=== PATIENT | female | born 1990 | race African-American/Black ===

== ENCOUNTER 2019-06-23 15:29 | Emergency (ER) | payer BC, SELFPAY ==
[2019-06-23 15:31] VITALS: BP 121/75; PULSE 91; RESP 18; TEMP 37.3; O2SAT 100
--- NOTE | 2019-06-23 15:56 | ED.GENADULT ---
HPI - General Adult General Chief complaint: Skin/Abscess/Foreign Body <Isrrael Fernandez PA-C - Last Filed: 06/23/19 16:03> Stated complaint: I HAVE A LUMP UNDER MY CHIN <Isrrael Fernandez PA-C - Last Filed: 06/23/19 16:03> Time Seen by Provider: 06/23/19 15:34 <Isrrael Fernandez PA-C - Last Filed: 06/23/19 16:03> Source: patient <Isrrael Fernandez PA-C - Last Filed: 06/23/19 16:03> Mode of arrival: ambulatory <RAJANI Reynaga Last Filed: 06/23/19 16:03> Limitations: no limitations <Isrrael Fernandez PA-C - Last Filed: 06/23/19 16:03> History of Present Illness HPI narrative: Patient is a 29-year-old female who presents with swollen tender area in the submental region that was noticed today patient notes mild discomfort with hyperextending the neck patient denies any recent illness or other complaints denies similar occurrence in the past and otherwise resting comfortably in the room upon arrival in no distress <Isrrael Fernandez PA-C - Last Filed: 06/23/19 16:03> Related Data Allergies/adverse reactions: Allergies Allergy/AdvReac Type Severity Reaction Status Date / Time No Known Allergies Allergy Verified 02/24/19 16:58 <Isrrael Fernandez PA-C - Last Filed: 06/23/19 16:03> Review of Systems Review of Systems: All systems reviewed & are unremarkable except as noted in HPI and below <Isrrael Fernandez PA-C - Last Filed: 06/23/19 16:03> PMFSH Social History Social History: Social History (Updated 02/24/19 @ 18:19 by Isrrael Fernandez PA-C) Smoking status: Never smoker Gender identity (if verbalized by the patient): Female <RAJANI Reynaga Last Filed: 06/23/19 16:03> Exam Narrative: Exam Narrative: GENERAL: Well-appearing, well-nourished, and in no acute distress. HEAD: Normocephalic, atraumatic. Patient with a single mobile subcentimeter lymph node in the submental region no other abnormalities EYES: PERRLA and EOMI. ENT: Nares clear, no rhinorrhea or epistaxis. Mucous membranes moist. Oropharynx without tonsillar hypertrophy exudate or other lesions. Bilateral TMs pearly bass nonbulging NECK: Supple. No adenopathy or masses. EXTREMITIES: Normal range of motion. No edema. SKIN: Warm, dry, no rash. NEURO: No focal deficits. Alert and oriented x3. PSYCH: Normal mood and affect. <RAJANI Reynaga Last Filed: 06/23/19 16:03> Course Course Emergency Course: Patient in the room in no distress aware of case findings treatment plan diagnosis in the room in no distress felt appropriate for discharge home <Isrrael Fernandez PA-C - Last Filed: 06/23/19 16:03> Vital Signs Vital signs: Vital Signs Temperature 99.2 F 06/23/19 15:31 Pulse Rate 91 06/23/19 15:31 Respiratory Rate 18 06/23/19 15:31 Blood Pressure 121/75 06/23/19 15:31 Pulse Oximetry 100 06/23/19 15:31 Temperature 98.9 F 06/23/19 16:14 Pulse Rate 89 06/23/19 16:14 Respiratory Rate 16 06/23/19 16:14 Blood Pressure 127/84 06/23/19 16:14 Pulse Oximetry 100 06/23/19 16:14 <Isrrael Fernandez PA-C - Last Filed: 06/23/19 16:03> Vital Signs Temperature 99.2 F 06/23/19 15:31 Pulse Rate 91 06/23/19 15:31 Respiratory Rate 18 06/23/19 15:31 Blood Pressure 121/75 06/23/19 15:31 Pulse Oximetry 100 06/23/19 15:31 Temperature 98.9 F 06/23/19 16:14 Pulse Rate 89 06/23/19 16:14 Respiratory Rate 16 06/23/19 16:14 Blood Pressure 127/84 06/23/19 16:14 Pulse Oximetry 100 06/23/19 16:14 <Comfort Ledezma MD - Last Filed: 06/23/19 16:28> Medical Decision Making MDM Narrative Medical decision making narrative: Patient provided with ENT follow-up agreeing to follow-up as directed or to return if symptoms worsen or concerns <RAJANI Reynaga Last Filed: 06/23/19 16:03> Vital Signs Vital Signs: Vital Signs Temperature 99.2 F 06/23/19 15:31 Pulse Rate 91 06/23/19 15
[2019-06-23 16:14] VITALS: BP 127/84; PULSE 89; RESP 16; TEMP 37.2; O2SAT 100
== END 2019-06-23 16:15 | disposition home or self-care (01) ==
LOC: ANHED 16:05
PROVIDERS: Emergency Provider Emergency Medicine
DX: R59.1 Generalized enlarged lymph nodes (principal)
CPT/HCPCS: 99283

== ENCOUNTER 2019-12-25 12:15 | Emergency (ER) | payer BC, SELFPAY ==
--- NOTE | ~2019-12-25 | CT_ITS ---
EXAMINATION: CT abdomen pelvis wo con DATE: 12/25/2019 15:58 INDICATION: Low abdominal pain. TECHNIQUE: Computed tomography (CT) of the abdomen and pelvis was performed without intravenous contr ast. Automated exposure control and iterative reconstruction technique were employed. The dose-length product was 170.82 mGy-cm. COMPARISON: None. FINDINGS: The visualized portions of the lung bases are clear without pneumonia or pleural effusion. The heart size is normal. No pericardial effusion. The liver, gallbladder, spleen, pancreas, adrenal glands, and kidneys are normal. There is no urolithiasis. There are no dilated loops of bowel. The ap pendix is normal. There are no pathologically enlarged lymph nodes. There is no free intraperitoneal fluid. The bones are unremarkable. IMPRESSION: 1. No etiology for the patient's symptoms. Reviewed, dictated and finalized at location [facility]
[2019-12-25 12:31] VITALS: BP 119/78; PULSE 99; RESP 16; TEMP 37.1; O2SAT 100
[2019-12-25 13:20] LABS: Add Urine Microscopic? YES; Appearance Urine Cloudy (Clear); Bilirubin Urine Negative (Negative); Blood Urine Negative (Negative); Color Urine Yellow (Yellow); Glucose Urine UA Negative (Negative); Ketones Urine Negative (Negative); Leukocyte Esterase Ur Trace LEU/UL (Negative); Mucus Urine Rare /lpf; Nitrate Urine Negative (Negative); Protein Urine Negative (Negative); RBC Urine 0-2 /hpf (0-2); Squamous Epithelial Cell Urine Many /hpf (Few); Transitional Epi Cells Urine Rare /hpf (None Seen); WBC Urine 0-3 /hpf
[2019-12-25 15:12] LABS: Basophils Absolute Auto 0.1 K/mm3 (0.0-0.1); Basophils Percent Auto 0.9 % (0.2-1.2); Eosinophils Percent Auto 0.6 % (0-4.4); Hematocrit 26.7 % (37.0-47.0); Hemoglobin 8.4 g/dL (12.0-15.0); Immature Granulocyte Absolute 0.01 K/mm3 (0.00-0.031); Immature Granulocyte Percent A 0.2 % (0-0.5); Lymphocytes Percent Auto 55.7 % (18.3-44.2); Mean Corpuscular HGB Conc 31.5 g/dl (32-36); Mean Corpuscular Hemoglobin 24.4 pg (26-34); Mean Corpuscular Volume 77.6 fl (80-100); Mean Platelet Volume 10.3 fl (7.4-10.4); Monocytes Absolute Auto 0.5 K/mm3 (0.1-0.6); Neutrophils Absolute Auto 1.8 K/mm3 (1.3-6.7); Neutrophils Percent Auto 32.6 % (45.5-73.1); Platelet Count Result 346 k/mm3 (150-375); Red Blood Count 3.44 M/mm3 (4.2-5.4); Red Cell Distribution Width 16.2 % (11.5-14.5); White Blood Count 5.4 K/mm3 (4.5-10.0)
[2019-12-25 15:23] LABS: Anion Gap 11 mmol/L (8-16); Blood Urea Nitrogen 8 mg/dL (7-17); Calcium 9.2 mg/dL (8.4-10.2); Carbon Dioxide 24 mmol/L (22-30); Chloride 105 mmol/L (98-107); Estimated CRCL calculation 93 ml/min; Estimated Glomerular Filt Rate > 60; Glucose 90 mg/dL (65-105); Potassium 3.7 mmol/L (3.4-5.0); Sodium 140 mmol/L (137-145)
--- NOTE | 2019-12-25 16:12 | ED.ABDPAIN ---
HPI - Abdominal Pain General Chief Complaint: Urogenital-Female Stated Complaint: UTI symptoms Time Seen by Provider: 12/25/19 13:18 Source: patient Mode of arrival: ambulatory Limitations: no limitations History of Present Illness HPI narrative: This is a 29 year old female that presents to the ER for dysuria x 2 days. Associated with urinary frequency. Also reports some mid abdominal discomfort. Denies fever, nausea, vomiting, or flank pain. Related Data Allergies Allergy/AdvReac Type Severity Reaction Status Date / Time No Known Allergies Allergy Verified 02/24/19 16:58 Review of Systems Review of Systems: Narrative: CONSTITUTIONAL: Denies fever GASTROINTESTINAL: Reports abdominal pain. Denies nausea, vomiting, or diarrhea. GENITOURINARY: Reports dysuria. Denies hematuria. SKIN: Denies rash All systems reviewed & are unremarkable except as noted in HPI and below PMFSH Past Medical History Medical History (Updated 12/25/19 @ 16:14 by Naima Morales PA-C) History of seasonal allergies Social History Social History (Updated 02/24/19 @ 18:19 by Isrrael Fernandez PA-C) Smoking status: Never smoker Gender identity (if verbalized by the patient): Female Exam Narrative: Exam Narrative: GENERAL: Well-appearing, well-nourished, and in no acute distress. HEAD: Normocephalic, atraumatic. EYES: EOMI. CHEST: Clear to auscultation. No respiratory distress. No wheezes rales or rhonchi HEART: Regular rate and rhythm. No murmur heard. Normal peripheral pulses. ABDOMEN: Soft, nontender, nondistended, normal active bowel sounds. EXTREMITIES: Normal range of motion. No edema. SKIN: Warm, dry, no rash. NEURO: No focal deficits. Alert and oriented x3. PSYCH: Normal mood and affect PELVIC: Normal appearing cervix. Small amount of white discharge in the vaginal vault. No CMT Course Vital Signs Vital signs: Vital Signs Temperature 98.8 F 12/25/19 12:31 Pulse Rate 99 12/25/19 12:31 Respiratory Rate 16 12/25/19 12:31 Blood Pressure 119/78 12/25/19 12:31 Pulse Oximetry 100 12/25/19 12:31 Temperature 98.8 F 12/25/19 12:31 Pulse Rate 99 12/25/19 12:31 Respiratory Rate 16 12/25/19 12:31 Blood Pressure 119/78 12/25/19 12:31 Pulse Oximetry 100 12/25/19 12:31 MDM - Abdominal Pain Lab Data Attestation: I reviewed the patient's lab results. Result diagrams: 12/25/19 15:04 12/25/19 15:04 Labs: Lab Results 12/25/19 12/25/19 12/25/19 Range/Units 13:06 14:45 14:47 WBC (4.5-10.0) K/mm3 RBC (4.2-5.4) M/mm3 Hgb (12.0-15.0) g/dL Hct (37.0-47.0) % MCV (80-100) fl MCH (26-34) pg MCHC (32-36) g/dl RDW (11.5-14.5) % Plt Count (150-375) k/mm3 MPV (7.4-10.4) fl Immature Gran % (Auto) (0-0.5) % Neut % (Auto) (45.5-73.1) % Lymph % (Auto) (18.3-44.2) % [place] % (Auto) (2.6-8.5) % Eos % (Auto) (0-4.4) % Baso % (Auto) (0.2-1.2) % Lymph # (Auto) (0.9-3.2) K/mm3 [place] # (Auto) (0.1-0.6) K/mm3 Eos # (Auto) (0-0.3) K/mm3 Baso # (Auto) (0.0-0.1) K/mm3 Abs Immat Gran (auto) (0.00-0.031) K/mm3 Absolute Neuts (auto) (1.3-6.7) K/mm3 Absolute Nucleated RBC (0.0-0.012) K/mm3 Nucleated RBC % (0.0-0.2) % Sodium (137-145) mmol/L Potassium (3.4-5.0) mmol/L Chloride (98-107) mmol/L Carbon Dioxide (22-30) mmol/L Anion Gap (8-16) mmol/L BUN (7-17) mg/dL Creatinine (0.7-1.0) mg/dL Estim Creat Clear Calc ml/min Estimated GFR (59 - ) Glucose (65-105) mg/dL Calcium (8.4-10.2) mg/dL Urine Color Yellow (Yellow) Urine Appearance Cloudy H (Clear) Urine pH 8.0 (5.0-9.0) Ur Specific [place] 1.010 (1.001-1.035) Urine Protein Negative (Negative) mg/dL Urine Glucose (UA) Negative (Negative) mg/dL Urine Ketones Negative (Negative) mg/dL Ur Blood (Man) Negative (Negative) Urine
--- NOTE | 2019-12-25 16:34 | ED.ABDPAIN ---
HPI - Abdominal Pain General Chief Complaint: Urogenital-Female Stated Complaint: UTI symptoms Time Seen by Provider: 12/25/19 13:18 Source: patient Mode of arrival: ambulatory Limitations: no limitations History of Present Illness HPI narrative: This is a 29 year old female that presents to the ER for dysuria x 2 days. Also reports frequency and mid abdominal discomfort. Denies fever, nausea, vomiting, or hematuria. Related Data Allergies Allergy/AdvReac Type Severity Reaction Status Date / Time No Known Allergies Allergy Verified 02/24/19 16:58 Review of Systems Review of Systems: Narrative: CONSTITUTIONAL: Denies fever GASTROINTESTINAL: Reports abdominal pain. Denies nausea, vomiting, or diarrhea. GENITOURINARY: Reports dysuria. Denies hematuria. SKIN: Denies rash All systems reviewed & are unremarkable except as noted in HPI and below PMFSH Past Medical History Medical History (Updated 12/25/19 @ 16:41 by Naima Morales PA-C) History of seasonal allergies Social History Social History (Updated 02/24/19 @ 18:19 by Isrrael Fernandez PA-C) Smoking status: Never smoker Gender identity (if verbalized by the patient): Female Exam Narrative: Exam Narrative: GENERAL: Well-appearing, well-nourished, and in no acute distress. HEAD: Normocephalic, atraumatic. EYES: EOMI. CHEST: Clear to auscultation. No respiratory distress. No wheezes rales or rhonchi HEART: Regular rate and rhythm. No murmur heard. Normal peripheral pulses. ABDOMEN: Soft, nontender, nondistended, normal active bowel sounds. EXTREMITIES: Normal range of motion. No edema. SKIN: Warm, dry, no rash. NEURO: No focal deficits. Alert and oriented x3. PSYCH: Normal mood and affect PELVIC: Normal appearing cervix. Small amount of white discharge in the vaginal vault. No CMT Course Vital Signs Vital signs: Vital Signs Temperature 98.8 F 12/25/19 12:31 Pulse Rate 99 12/25/19 12:31 Respiratory Rate 16 12/25/19 12:31 Blood Pressure 119/78 12/25/19 12:31 Pulse Oximetry 100 12/25/19 12:31 Temperature 98.8 F 12/25/19 12:31 Pulse Rate 99 12/25/19 12:31 Respiratory Rate 16 12/25/19 12:31 Blood Pressure 119/78 12/25/19 12:31 Pulse Oximetry 100 12/25/19 12:31 MDM - Abdominal Pain MDM Narrative Medical decision making narrative: Patient presents to the emergency department for dysuria and abdominal discomfort. She is afebrile and nontoxic-appearing. CBC is without leukocytosis. Does show microcytic anemia with hemoglobin of 8.4. Metabolic panel without concerning findings. UA is without signs of infection. Trichomonas was negative. Genital culture, chlamydia and gonorrhea were sent. Patient does not want to be presumptively treated and would like to follow-up for results. CT scan of the abdomen and pelvis is without acute findings. Patient was updated on case findings. Reports she has known history of anemia. She is to follow-up with her primary care doctor and piercing specialist. She was given warnings to return to the ER Lab Data Attestation: I reviewed the patient's lab results. Result diagrams: 12/25/19 15:04 12/25/19 15:04 Labs: Lab Results 12/25/19 12/25/19 12/25/19 Range/Units 13:06 14:45 14:47 WBC (4.5-10.0) K/mm3 RBC (4.2-5.4) M/mm3 Hgb (12.0-15.0) g/dL Hct (37.0-47.0) % MCV (80-100) fl MCH (26-34) pg MCHC (32-36) g/dl RDW (11.5-14.5) % Plt Count (150-375) k/mm3 MPV (7.4-10.4) fl Immature Gran % (Auto) (0-0.5) % Neut % (Auto) (45.5-73.1) % Lymph % (Auto) (18.3-44.2) % [place] % (Auto) (2.6-8.5) % Eos % (Auto) (0-4.4) % Baso % (Auto) (0.2-1.2) % Lymph # (Auto) (0.9-3.2) K/mm3 [place] # (Auto) (0.1-0.6) K/mm3 Eos # (Auto) (0-0.3) K/mm3 Baso # (Auto) (0.0-0.1) K/mm3 Abs Immat Gran (auto) (0.00-0.031) K/mm3 Absolute Neuts (auto) (1.3-6.7) K/mm3 Absolute Nucleate
[2019-12-25 17:05] VITALS: BP 116/74; PULSE 60; RESP 12; O2SAT 99
== END 2019-12-25 18:02 | disposition home or self-care (01) ==
PROVIDERS: Physician Assistant; Emergency Provider Emergency Medicine
DX: D64.9 Anemia, unspecified (principal); R30.0 Dysuria
CPT/HCPCS: 36415; 74176; 80048; 81001; 81025; 85025; 87070; 87086; 87088; 87491; 87591; 87808; 99284

== ENCOUNTER 2020-02-25 10:55 | Emergency (ER) | payer BC, SELFPAY ==
[2020-02-25 11:05] VITALS: BP 119/75; PULSE 77; RESP 14; TEMP 36.6; O2SAT 100
--- NOTE | 2020-02-25 11:17 | ED.NECK ---
HPI - Neck Pain/Injury General Chief Complaint: Neck Pain/Injury Stated Complaint: neck pain Time Seen by Provider: 02/25/20 11:11 Source: patient Mode of arrival: ambulatory Limitations: no limitations History of Present Illness HPI Narrative: Patient is a 30-year-old female complaining of right-sided neck pain, 6 out of 10, dull aching, nonradiating, worse with movement and palpation started approximately 1 week ago, woke up with it . Patient states she might of slept the wrong way but denies any injury. Patient denies any headache, dizziness, speech or visual disturbance, weakness, numbness, fever or chills. Related Data Allergies Allergy/AdvReac Type Severity Reaction Status Date / Time No Known Allergies Allergy Verified 02/24/19 16:58 Review of Systems Review of Systems: All systems reviewed & are unremarkable except as noted in HPI and below Constitutional: Constitutional: Denies body ache(s), Denies chills, Denies excessive sweating, Denies fatigue, Denies fever(s), Denies headache(s), Denies lethargy, Denies malaise, Denies weakness and Denies weight loss Eyes: Eyes: Denies blurry vision, Denies change in vision and Denies loss of vision ENT: Denies dizziness, Denies ear discharge, Denies headache(s), Denies lip swelling, Denies epistaxis, Denies nasal congestion, Denies throat swelling and Denies tongue swelling Cardiovascular: Cardiovascular: Denies chest pain, Denies chest pain at rest, Denies chest pain with activity, Denies diaphoresis, Denies rapid heart rate, Denies edema, Denies irregular heart rhythm, Denies lightheadedness, Denies palpitations, Denies dyspnea and Denies dyspnea on exertion Respiratory: Respiratory: Denies chest congestion, Denies cough, Denies hemoptysis, Denies dyspnea and Denies dyspnea on exertion Gastrointestinal: Gastrointestinal: Denies abdominal pain, Denies melena, Denies hematochezia, Denies diarrhea, Denies nausea, Denies vomiting and Denies hematemesis Musculoskeletal: Musculoskeletal: Denies abnormal gait, Denies deformity, Denies joint swelling, Denies limited range of motion, Denies neck pain and Denies numbness Neurologic: Denies Abnormal speech present, Denies abnormal gait, Denies confusion, Denies dizziness, Denies headache(s), Denies focal weakness, Denies loss of vision, Denies numbness, Denies Other visual disturbances, Denies Sensory deficit (Neuro) and Denies weakness Psychiatric: Psychiatric: Denies confusion, Denies depression, Denies auditory hallucinations, Denies homicidal ideation and Denies suicidal ideation Endocrine: Endocrine: Denies cold intolerance, Denies excessive sweating, Denies fatigue, Denies heat intolerance and Denies palpitations Hematologic/Lymphatic: Hematologic/Lymphatic: Denies easy bleeding and Denies easy bruising Allergic/Immunologic: Allergic/Immunologic: Denies lip swelling, Denies throat swelling and Denies tongue swelling PMFSH Past Medical History Medical History History of seasonal allergies Social History Social History Smoking status: Never smoker Gender identity (if verbalized by the patient): Female Exam Const: General: cooperative, healthy appearing, comfortable, no acute distress, well developed, alert and awake; No confusion Orientation/consciousness: oriented to person, oriented to place, oriented to time, patient oriented x3 and No confusion Limitations: no limitations HENMT: Head: normal to inspection, normocephalic and atraumatic Ears: hearing grossly normal bilaterally, TM normal on the right and TM normal on the left General nose exam: Normal external nose present, Normal nares present and No nasal discharge present Face and sinus: normal facial exam Mouth: Yes Normal oral and palatal mucosa present, Yes lip normal, Yes tongue normal and Yes oropharynx normal Throat: posterior oropharynx normal, tonsils
[2020-02-25] MEDS: KETOROLAC 30 MG/ML VIAL (*BKC) IM (12:08)
[2020-02-25] MEDS: CYCLOBENZAPRINE HCL 10 MG TABLET PO (12:08)
[2020-02-25 12:44] VITALS: BP 116/73; PULSE 70; RESP 15; O2SAT 99
== END 2020-02-25 13:22 | disposition home or self-care (01) ==
PROVIDERS: Emergency Provider Emergency Medicine
DX: S16.1XXA Strain of muscle, fascia and tendon at neck level, initial encounter (principal); X58.XXXA Exposure to other specified factors, initial encounter
CPT/HCPCS: 81025; 96372; 99283; A9270; J1885

== ENCOUNTER 2021-05-08 09:23 | Outpatient (CLI) | payer OTHER, MEDICAID, SELFPAY ==
[2021-05-08 09:54] LABS: Hematocrit 30.6 % (37.0-47.0); Hemoglobin 9.7 g/dL (12.0-15.0)
== END 2021-05-08 09:24 | disposition home or self-care (01) ==
LOC: ANHLAB 09:26
PROVIDERS: Visit Provider Student in an Organized Health Care Education/Training Program
DX: N84.0 Polyp of corpus uteri (principal); Z01.818 Encounter for other preprocedural examination
CPT/HCPCS: 36415; 85014; 85018

== ENCOUNTER → 2021-05-11 02:47 | Outpatient (CLI) | payer OTHER, MEDICAID, SELFPAY ==
[2021-05-11 11:36] LABS: SARS-CoV-2 RNA PCR Negative
== END ==
PROVIDERS: Student in an Organized Health Care Education/Training Program; Visit Provider Obstetrics & Gynecology
DX: Z01.812 Encounter for preprocedural laboratory examination (principal); Z20.822 Contact with and (suspected) exposure to COVID-19
CPT/HCPCS: C9803; U0003; U0005

== ENCOUNTER 2021-05-14 01:06 | Day surgery (SDC) | payer OTHER, MEDICAID, SELFPAY ==
[2021-05-04 15:01] VITALS: BMI 23.4
--- NOTE | 2021-05-04 15:06 | PC.NURSE ---
Report to the Outpatient Waiting Room, entrance under the green pavilion located off [facility], at time _1230 on date __05/14/21__. OR Time: ____1430____. - You and your visitor will be asked a series of questions to screen for COVID 19 for your protection. - A mask is required within the hospital. Preoperative COVID Testing Requirements: No COVID Test needed if: (proof is required; if not received patient will have Rapid Test prior to entry) - Patient has received COVID Vaccine at least 14 days prior to procedure date or - Patient has positive COVID test result within last 90 days of surgery date. COVID Test needed if above criteria is not met If not COVID vaccinated a COVID test must be conducted within 72 hours of surgery and patient is asked to isolate self from time of testing until procedure. You will go to the [email or web address] for your COVID testing. The [facility] site is located at the corner of [address] from [facility]. You will only be called if COVID results are positive and your surgeon may reschedule your elective surgery date. Patients may have clear liquids (water, carbonated beverages, clear teas, apple juice) until 3 hours prior to surgery with a maximum of 20 ounces. - No food from midnight until time of surgery - Infants may have breast milk until 4 hours before surgery, infant formula 6 hours prior to surgery. - Children will be allowed to drink immediately following surgery. If applicable, please bring a bottle or sippy cup to assist with drinking. Juice, water, soda, and popsicles are readily available. For infants on formula, please bring formula the day of surgery. Pacifiers are allowed. Take the following medications with a SIP of water the morning of surgery: NONE Medications to discontinue per physician NONE Date to take last dose Please no make-up, nail bangladeshi, hairspray, perfume, deodorant, or body powder the day of surgery. No jewelry (including any body piercings) or valuables the day of surgery, leave them at home. Please take a shower or bath the night before, or the morning of, surgery with an antibacterial soap. Wear comfortable, loose fitting clothing. Children are encouraged to wear pajamas. - Jewelry must be removed prior to entering the operating room. Rings and piercings that are not removed may be cut off. - The hospital will not accept responsibility for valuables. - Please leave all valuables, including medications, at home the day of surgery. If you are going home after surgery, a licensed dray driver must drive you home. - NO public transportation without another adult. - We recommend that an adult stay with you for 24 hours following discharge. - We also recommend that you do not drive, make important decision, drink alcoholic beverages, or take any drugs that were not prescribed by your health care provider for at least 24 hours after your discharge time. For Pediatric surgeries, we recommend two adults accompany the child home (only one inside the building at this time). One visitor will be allowed to accompany the patient into the hospital. Patients visitor will be instructed to remain with patient at all times or leave the building. We will allow the visitor to come back to the postoperative area when patient is ready. Follow any additional instructions given to you from your surgeon. Telephone instructions given to PATIENT and asked if any additional questions and then verbalized understanding. Patient advised to call surgeon office or pre surgery nurse liaison [phone] if any additional questions.
--- NOTE | 2021-05-13 07:51 | PM.IMHP ---
H&P: HPI History of Present Illness Date/Time: 05/13/21 07:51 Chief Complaint: Abnormal uterine bleeding Narrative: 31 yo female who presents for hysteroscopy and D&C for AUB. Pt [facility] at [facility] complaining of heavy vaginal bleeding. Pt reported a family history of uterine fibroids. Her pelvic US did not show any fibroids but showed a thickened EMC with possible increased vascularity. Pt also reports she has been trying to conceive without success. [facility] Past Medical History Medical History History of seasonal allergies Social History Social History Smoking status: Never smoker Alcohol intake: current Drinks per week: 1 Substance use: never Gender identity (if verbalized by the patient): Female Meds Home Medications and Allergies Home Medications Medication Instructions Recorded Confirmed Type No Home Medications 05/04/21 05/04/21 History Allergies Allergy/AdvReac Type Severity Reaction Status Date / Time No Known Allergies Allergy Verified 05/04/21 14:58 Assessment and Plan Assessment and plan (1) Abnormal uterine bleeding (AUB): Code(s): N93.9 - Abnormal uterine and vaginal bleeding, unspecified Status: Acute Assessment and Plan: pt complains of heavy vaginal bleeding during menses pt had pelvic US that showed thickened EMC with increased vascularity, possible polyp pt has been trying to conceive for the past 5 months will plan for hysteroscopy and D&C
--- NOTE | 2021-05-13 15:23 | P.PNAN_ITS ---
Anes - Initial Pre Proc Eval Procedure: Operation Date: 05/14/21 14:30 Proposed Procedures p Hysteroscopy, Dilation and Curettage, Endometrial Polypectomy - Rashid Fuentes MD Date/Time: 05/13/21 15:23 Surgeon: Rashid Fuentes MD Pre Op Diagnosis: Irrg Bleeding, Uterine Polyp Patient Data Age: 31 Gender: F Height: 1.6 m Weight: 60 kg Allergies Allergy/AdvReac Type Severity Reaction Status Date / Time No Known Allergies Allergy Verified 05/14/21 12:46 Home Medications Medication Instructions Recorded Confirmed Type No Home Medications 05/04/21 05/04/21 History Patient hx anesthesia problems: none Family hx anesthesia problems: none Results Review: All pre-operative results and documents have been reviewed as part of the pre-operative evaluation. [facility] Past Medical History Medical History (Updated 05/13/21 @ 15:23 by Power Huerta MD) Abnormal uterine bleeding (AUB) History of seasonal allergies Social History Social History Smoking status: Never smoker Alcohol intake: current Drinks per week: 1 Substance use: never Living arrangements: with family Gender identity (if verbalized by the patient): Female Anes - Eval Final PreProcedure Day of Procedure 05/13/21 15:23 Patient weight: normal Heart: regular rate and rhythm Lungs: clear to auscultation and normal air movement Airway: Mallampati scale class II Neurological: alert and oriented Last oral intake: >/= 8 hours ASA classification: I Emergent: no Anesthetic plan: proceed Anesthesia type and monitoring: general GIVS and LMA Results Review: All pre-operative results and documents have been reviewed as part of the pre-operative evaluation. Informed Consent: The patient's anesthetic plan and its attendant risks and benefits were discussed with the patient/family/POA. Questions were solicited and answers provided to the satisfaction of the patient/family/POA.
--- NOTE | 2021-05-14 09:02 | WPDHPUPDATE1 ---
History and Physical Update Update Date/Time: 05/14/21 09:02 History and Physical has been reviewed, including an updated exam of the patient. There are NO changes in the patient's condition. Risks, benefits, and alternatives have been discussed and questions answered. Patient agrees to proceed with procedure.
[2021-05-14 12:41] VITALS: BP 106/67; PULSE 73; RESP 16; TEMP 36.7; O2SAT 100; BMI 23.5
[2021-05-14] MEDS: ACETAMINOPHEN 500 MG TABLET 1000 MG PO (12:49)
[2021-05-14] MEDS: LACTATED RINGERS 1,000 ML 30 ML IV CONT (12:57)
--- NOTE | 2021-05-14 14:56 | SUR.OPER ---
[facility] HYSTEROSCOPE SYSTEM
--- NOTE | 2021-05-14 15:09 | W.PM.PROC2 ---
Procedure Note - Detailed Date of Procedure 05/14/21 Pre-op Diagnosis Irrg Bleeding, Uterine Polyp Post-op Diagnosis Same Procedure Performed paracervical block hysteroscopy dilation & curettage polypectomy Surgeon Rashid Fuentes MD Anesthesia General Indications abnormal uterine bleeding Findings normal appearing intrauterine cavity. Normal tubal ostia bilaterally Description of Procedure Joaquín Rosado presents for hysteroscopy, D&C, polypectomy. She was counseled as to the indications, risks, benefits, and alternatives to surgery, with the risks including bleeding, infection, damage to surrounding organs, VTE, and complications of anesthesia. Her verbal and written consent was obtained. PROCEDURE: The patient was taken to the OR and general anesthesia induced. She was prepped and draped in Russ stirrups with support of the back and bilateral lower extremities. I/O catheterization performed of the bladder. The above findings were noted. Infiltration with 1% lidocaine at the 3 and 9 o'clock cervical positions was performed. A single tooth tenaculum was placed on the anterior lip of the cervix. The cervix was dilated with sequential Susannah dilators. Hysteroscopy, using a normal saline medium, was performed and showed the above findings. The endometrial lining was visualized and found to have focal areas of thickening suggestive of endometrial polyp. The AvTheInfoPro operative hysteroscope device was then used to remove the polyp and sample the endometrial lining, restoring a normal appearing endometrial cavity. The tissue was sent to pathology. Sharp uterine curettage was then performed and tissue placed on Telfa. The tenaculum was removed and hemostasis was observed. The patient tolerated the procedure well. Sponge, lap, and needle counts were correct. The patient was taken to the recovery room in stable condition. Estimated Blood Loss 25 Urine Output 100 Drains No Packing No Pathology Yes (endometrial curettings ) Complications No immediate complications Condition Stable Disposition PACU
[2021-05-14 15:12] VITALS: BP 98/65; PULSE 77; RESP 14; O2SAT 98
[2021-05-14 15:30] VITALS: BP 103/72; PULSE 58; RESP 16; O2SAT 97
[2021-05-14 16:00] VITALS: BP 102/73; PULSE 69; RESP 16; O2SAT 99
== END 2021-05-14 16:21 | disposition home or self-care (01) ==
PROVIDERS: Visit Provider Student in an Organized Health Care Education/Training Program
PROC: 0U5B8ZZ Destruction of Endometrium, Via Natural or Artificial Opening Endoscopic (ICD-10-PCS; CPT 58563; principal; 2021-05-14 14:30)
DX: C54.1 Malignant neoplasm of endometrium (principal)
CPT/HCPCS: 58558; 36415; 85014; 85018; 88305; A9270; C9803; J2250; J2704; J3010; J7120; U0003; U0005

== ENCOUNTER 2021-10-03 09:18 | Emergency (ER) | payer OTHER, MEDICAID, SELFPAY ==
--- NOTE | ~2021-10-03 | CT_ITS ---
EXAMINATION: CT abdomen pelvis w con DATE: 10/03/2021 11:26 INDICATION: Abdominal pain. TECHNIQUE: Computed tomography (CT) of the abdomen and pelvis was performed with 100 mL Omnipaque 350 intravenous contrast. Automated exposure control and iterative reconstruction technique were employe d. The dose-length product was 225.33 mGy-cm. COMPARISON: CT abdomen and pelvis 12/25/2019 FINDINGS: The visualized portions of the lung bases demonstrate mild atelectasis. No pleural effusion . The heart size is normal. No pericardial effusion. There are bilateral breast implants. The liver, gallbladder, spleen, pancreas, adrenal glands, and kidneys are normal. There are no dilated loops of bowel. The appendix is normal. There are punctate foci of free intraperitoneal gas adjacent to the li rae, consistent with recent surgery. There are no pathologically enlarged lymph nodes. There are area s of fat stranding in anterior abdominal wall at recent surgical sites. There is physiologic fluid in the pelvis. The bones are unremarkable. IMPRESSION: 1. No specific etiology for the patient's symptoms. Reviewed, dictated and finalized at location A.
--- NOTE | ~2021-10-03 | US_ITS ---
EXAMINATION: US transvaginal DATE: 10/03/2021 14:41 INDICATION: pelvic pain s/p intercourse TECHNIQUE: Multiple transvaginal sonographic images of the pelvis were obtained. COMPARISON: None. FINDINGS: Uterus: Absent Right Ovary: 4.1 x 2.6 x 2.5 cm. Vascular flow is present. Left Ovary: 3.6 x 2.7 x 1.9 cm. Vascular flow is present. Tender to transducer pressure. There is no free fluid in the pelvis. IMPRESSION: Left adnexal tenderness to transducer pressure. Surgically absent uterus. No other sonographic abnorm ality detected. Reviewed, dictated and finalized at location K. IMPRESSION: Left adnexal tenderness to transducer pressure. Surgically absent uterus. No ot her sonographic abnormality detected.
[2021-10-03 09:25] VITALS: BP 115/74; PULSE 115; RESP 20; TEMP 36.7; O2SAT 98
[2021-10-03] MEDS: LACTATED RINGERS 1,000 ML 999 ML IV CONT (10:07)
[2021-10-03] MEDS: MORPHINE SULFATE (*CRX) 4 MG/ML INJ IV PUSH (10:08)
[2021-10-03 10:09] LABS: Basophils Percent Auto 0.3 % (0.2-1.2); Eosinophils Percent Auto 0.2 % (0-4.4); Hematocrit 28.4 % (37.0-47.0); Hemoglobin 9.1 g/dL (12.0-15.0); Immature Granulocyte Absolute 0.05 K/mm3 (0.00-0.031); Immature Granulocyte Percent A 0.5 % (0-0.5); Lymphocytes Absolute Auto 1.74 K/mm3 (0.9-3.2); Lymphocytes Percent Auto 16.6 % (18.3-44.2); Mean Corpuscular Hemoglobin 27.1 pg (26-34); Mean Corpuscular Volume 84.5 fl (80-100); Mean Platelet Volume 9.8 fl (7.4-10.4); Monocytes Absolute Auto 0.7 K/mm3 (0.1-0.6); Neutrophils Absolute Auto 7.9 K/mm3 (1.3-6.7); Neutrophils Percent Auto 75.4 % (45.5-73.1); Platelet Count Result 303 k/mm3 (150-375); Red Blood Count 3.36 M/mm3 (4.2-5.4); Red Cell Distribution Width 16.9 % (11.5-14.5); White Blood Count 10.5 K/mm3 (4.5-10.0)
[2021-10-03 10:13] LABS: Appearance Urine Clear (Clear); Bilirubin Urine 1+ (Negative); Color Urine Yellow (Yellow); Glucose Urine UA Negative (Negative); Ketones Urine Trace mg/dL (Negative); Leukocyte Esterase Ur 2+ LEU/UL (Negative); Nitrate Urine Negative (Negative); Protein Urine 1+ mg/dL (Negative)
[2021-10-03 10:17] LABS: Mucus Urine Few /lpf; Squamous Epithelial Cell Urine Few /hpf (Few); WBC Urine 16-20 /hpf
[2021-10-03 10:20] LABS: Alanine Aminotransferase 15 U/L (6-35); Albumin Level 4.3 g/dL (3.5-5.1); Alkaline Phosphatase 48 U/L (38-126); Anion Gap 7 mmol/L (8-16); Aspartate Amino Transferase 46 U/L (14-36); Bilirubin,Total 0.6 mg/dL (0.2-1.3); Blood Urea Nitrogen 7 mg/dL (7-17); Calcium 8.5 mg/dL (8.4-10.2); Carbon Dioxide 27 mmol/L (22-30); Chloride 103 mmol/L (98-107); Estimated CRCL calculation 73 ml/min; Estimated Glomerular Filt Rate > 60; Glucose 96 mg/dL (65-110); INR 1.1; Potassium 3.6 mmol/L (3.4-5.0); Prothrombin Time 13.3 Seconds (11.1-14.7); Sodium 137 mmol/L (137-145)
[2021-10-03 10:21] LABS: INR 1.1; Prothrombin Time 13.8 Seconds (11.1-14.7)
[2021-10-03 10:22] LABS: Partial Thromboplastin Time 24.4 SECONDS (22.3-36.8)
[2021-10-03 10:32] LABS: Add Urine Microscopic? YES; Blood Urine Trace-Intact (Negative)
--- NOTE | 2021-10-03 11:11 | PC.NURSE ---
Pt taken to CT
[2021-10-03 12:13] VITALS: BP 103/67; PULSE 73; RESP 18; O2SAT 98
--- NOTE | 2021-10-03 12:28 | ED.FEMALEGU ---
HPI - Female Genitourinary General Chief complaint: Vaginal Bleeding Stated complaint: abd pain, vaginal bleeding Time Seen by Provider: 10/03/21 09:40 History of Present Illness HPI Narrative: 31-year-old female states that she was having intercourse with her last night when she felt severe pain in her pelvis, and some amount of vaginal bleeding. She came in today because the pain was still present and she wanted to make sure things okay. She did have a recent robotic hysterectomy and had been given the okay to resume intercourse. Related Data Allergies Allergy/AdvReac Type Severity Reaction Status Date / Time No Known Allergies Allergy Verified 10/03/21 09:38 Review of Systems Review of Systems: CONST: No fever. HEENT: No sore throat C/V: No chest pain RESP: No cough GI: Reports abdominal pain : Scant vaginal bleeding M/S: No joint pain. SKIN: No rash. NEURO: [No headache or focal numbness or weakness] PSYCH: [No depression] [facility] Past Medical History Medical History (Updated 10/03/21 @ 15:48 by Maylin Badillo MD) Abnormal uterine bleeding (AUB) Endometrial cancer History of seasonal allergies Surgical History Surgical History (Updated 10/03/21 @ 15:46 by Maylin Badillo MD) History of hysterectomy for cancer Social History Social History Smoking status: Never smoker Alcohol intake: current Drinks per week: 1 Substance use: never Gender identity (if verbalized by the patient): Female Exam Narrative: EXAMINATION OF ORGAN SYSTEMS/BODY AREAS: Constitutional: Vital signs per nursing GENERAL:Appears uncomfortable in bed HEAD: Normal with no signs of head trauma. EYES: EOMI, conjunctiva normal ENT: Hearing grossly intact LUNGS: Nonlabored breathing. HEART: [Regular rate and rhythm] ABD: [Soft], [tender to palpation LLQ] : Scant blood in vault without hemorrhage; left adnexal tenderness EXT: Normal range of motion SKIN: [No rashes or lesions.] NEURO: [Alert and oriented x 3. No gross focal sensory or strength deficits.] PSYCH: Normal affect Course Vital Signs Vital signs: Vital Signs Temperature 98.0 F 10/03/21 09:25 Pulse Rate 115 H 10/03/21 09:25 Respiratory Rate 20 10/03/21 09:25 Blood Pressure 115/74 10/03/21 09:25 Pulse Oximetry 98 10/03/21 09:25 Oxygen Delivery Room Air 10/03/21 09:25 Temperature 98.0 F 10/03/21 09:25 Pulse Rate 79 10/03/21 13:52 Respiratory Rate 18 10/03/21 13:52 Blood Pressure 95/63 L 10/03/21 13:52 Pulse Oximetry 97 10/03/21 13:52 Oxygen Delivery Room Air 10/03/21 09:25 MDM - Female Genitourinary MDM Narrative Medical decision making narrative: Electronic medical record was reviewed. Patient presented to the ED with complaint of pelvic pain after intercourse, and hysterectomy 2 months ago. Vitals notable for tachycardia. Physical exam revealed soft abdomen that is mildly tender, nonperitonitic, with left adnexal tenderness without much vaginal bleeding. Based on the patient's history and physical exam, my differential includes but is not limited to ruptured cyst, internal hemorrhage, doubt wound dehiscence given otherwise normal vaginal exam. [IV access was established by nursing staff. Patient was given morphine and IV fluids CBC, BMP, lipase, LFTs, bilirubin and alk phos were obtained. Labs were pertinent for UTI. [Decision was made to obtain a CT-abdomen to evaluate for acute abdominal process. CT-abdomen is unremarkable for acute intra-abdominal process]. Reevaluation, patient's pain is improved but given her continued symptoms I did obtain a transvaginal ultrasound. This does not show any acute abnormality or pelvic fluid. On reevaluation, the patient states that they are feeling better. They are not complaining of any new abdominal pain. Repeat examination did not show any significant guarding or rebound. No new tenderness. At this time I do not feel the
[2021-10-03 13:52] VITALS: BP 95/63; PULSE 79; RESP 18; O2SAT 97
--- NOTE | 2021-10-03 14:20 | PC.NURSE ---
Pt taken for US
[2021-10-03] MEDS: KETOROLAC 15 MG/ML VIAL (*BKC) IV PUSH (16:13)
[2021-10-03 16:21] VITALS: BP 101/64; PULSE 72; RESP 16; O2SAT 97
== END 2021-10-03 16:39 | disposition home or self-care (01) ==
PROVIDERS: Emergency Provider Emergency Medicine; PCP Internal Medicine
DX: N39.0 Urinary tract infection, site not specified (principal); Z85.44 Personal history of malignant neoplasm of other female genital organs; Z90.710 Acquired absence of both cervix and uterus
CPT/HCPCS: 36415; 74177; 76830; 80053; 81001; 85025; 85610; 85730; 86850; 86900; 86901; 87086; 87088; 96361; 96365; 96375; 99284; J0696; J1885; J2270; J7120; Q9967

== ENCOUNTER 2022-07-06 11:06 | Outpatient (CLI) | payer OTHER, MEDICAID, SELFPAY ==
[2022-07-06 11:20] LABS: Basophils Percent Auto 0.9 % (0.2-1.2); Eosinophils Percent Auto 0.9 % (0-4.4); Hematocrit 35.8 % (37.0-47.0); Hemoglobin 11.7 g/dL (12.0-15.0); Immature Granulocyte Absolute 0.01 K/mm3 (0.00-0.031); Immature Granulocyte Percent A 0.2 % (0-0.5); Lymphocytes Absolute Auto 2.47 K/mm3 (0.9-3.2); Lymphocytes Percent Auto 53.5 % (18.3-44.2); Mean Corpuscular HGB Conc 32.7 g/dl (32-36); Mean Platelet Volume 9.8 fl (7.4-10.4); Monocytes Absolute Auto 0.5 K/mm3 (0.1-0.6); Monocytes Percent Auto 9.7 % (2.6-8.5); Neutrophils Absolute Auto 1.6 K/mm3 (1.3-6.7); Neutrophils Percent Auto 34.8 % (45.5-73.1); Platelet Count Result 228 k/mm3 (150-375); Red Blood Count 3.77 M/mm3 (4.2-5.4); Red Cell Distribution Width 13.1 % (11.5-14.5); White Blood Count 4.6 K/mm3 (4.5-10.0)
[2022-07-06 16:30] LABS: Iron 102 ug/dL (37-170)
[2022-07-06 16:36] LABS: Alanine Aminotransferase 17 U/L (6-35); Albumin Level 4.7 g/dL (3.5-5.1); Alkaline Phosphatase 42 U/L (38-126); Anion Gap 8 mmol/L (8-16); Aspartate Amino Transferase 30 U/L (14-36); Bilirubin,Total 0.6 mg/dL (0.2-1.3); Blood Urea Nitrogen 10 mg/dL (7-17); Calcium 8.9 mg/dL (8.4-10.2); Carbon Dioxide 26 mmol/L (22-30); Chloride 104 mmol/L (98-107); Estimated Glomerular Filt Rate > 60; Glucose 77 mg/dL (65-110); Lactate Dehydrogenase 166 U/L (120-246); Potassium 4.2 mmol/L (3.4-5.0); Sodium 138 mmol/L (137-145)
[2022-07-06 16:39] LABS: Percent Iron Saturation 27 % (20-50)
[2022-07-06 19:24] LABS: Folic Acid > 20.0 ng/mL (2.76->20)
[2022-07-11 16:07] LABS: Hematocrit 35.5 % (35.0-45.0); MCH 31.3 pg (27.0-33.0); MCV 92.7 fL (80.0-100.0); RDW 13.5 % (11.0-15.0); Red Blood Cell Count 3.83 Mill/uL (3.80-5.10)
== END 2022-07-06 11:07 | disposition home or self-care (01) ==
LOC: ANHLAB 11:08
PROVIDERS: PCP Internal Medicine; Visit Provider Internal Medicine Hematology & Oncology
DX: D64.9 Anemia, unspecified (principal)
CPT/HCPCS: 36415; 80053; 82607; 82728; 82746; 83021; 83540; 83550; 83615; 85025

== ENCOUNTER 2023-05-06 10:56 | Emergency (ER) | payer OTHER, SELFPAY ==
[2023-05-06 11:01] VITALS: BP 116/70; PULSE 71; RESP 18; TEMP 37; O2SAT 99
--- NOTE | 2023-05-06 12:39 | ED.EYEPROB ---
HPI - Eye Problem General Chief complaint: Eye Problems Stated complaint: eye injury Time Seen by Provider: 05/06/23 12:07 History of Present Illness HPI Narrative: 33-year-old female presenting with right eye pain. States that she was lifting a Pallet this morning and thinks that debris got into her right eye. States that she has had tearing and pain in the eye since then. No vision changes. Does not wear contacts. No further complaints. Related Data Allergies Allergy/AdvReac Type Severity Reaction Status Date / Time No Known Allergies Allergy Verified 05/06/23 12:15 Review of Systems Review of Systems: All systems reviewed & are unremarkable except as noted in HPI and below PMFSH Past Medical History Medical History Abnormal uterine bleeding (AUB) Encounter for gynecological examination Endometrial cancer History of seasonal allergies Vaginal discharge Surgical History Surgical History History of hysterectomy for cancer History of hysteroscopy 05/14/2021 - D&C and Polypectomy - abnormal uterine bleeding - - ENDOMETRIOID ADENOCARCINOMA, FIGO GRADE 1 Social History Social History Smoking status: Never smoker Alcohol intake: current Drinks per week: 1 Substance use: never Living arrangements: with family Gender identity (if verbalized by the patient): Female Sexual Orientation (if Verbalized by the Patient): Straight or Heterosexual Exam Narrative: GENERAL: Well-appearing, non toxic, uncomfortable HEAD: Normocephalic, atraumatic. EYES: PERRLA and EOMI. R eye with tearing, sensitive to light ENT: Grossly unremarkable NECK: Supple. CHEST: No respiratory distress. HEART: Regular rate and rhythm EXTREMITIES: Normal range of motion. SKIN: Warm, dry NEURO: Alert and oriented x3. PSYCH: Normal mood and affect. Course Vital Signs Vital signs: Vital Signs Temperature 98.6 F 05/06/23 11:01 Pulse Rate 71 05/06/23 11:01 Respiratory Rate 18 05/06/23 11:01 Blood Pressure 116/70 05/06/23 11:01 Pulse Oximetry 99 05/06/23 11:01 Oxygen Delivery Room Air 05/06/23 11:01 Temperature 98.6 F 05/06/23 11:01 Pulse Rate 71 05/06/23 11:01 Respiratory Rate 18 05/06/23 11:01 Blood Pressure 116/70 05/06/23 11:01 Pulse Oximetry 99 05/06/23 11:01 Oxygen Delivery Room Air 05/06/23 11:01 MDM - Eye Problem MDM Narrative Medical decision making narrative: 33-year-old female presenting with right eye pain and tearing, concern for foreign body. Vitals stable. Exam remarkable for the above. The right eye was flushed. Visual acuity 20/20 in the left, 20/25 on the right. Wood's lamp exam shows some abrasions laterally. Eyelids were flipped, I do not appreciate any retained foreign bodies. Will start her on ofloxacin drops and advised close Ophthalmology follow-up. Patient is agreeable with this plan. Discharged in stable condition. Differential Diagnosis Differential diagnosis: Likely corneal abrasion, conjunctivitis, corneal ulcer and other ( Foreign body) Medical Records Attestation: I reviewed the patient's medical records. Critical Care Time Critical Care Time Critical Care Time: No Discharge Plan Discharge Clinical Impression: Corneal abrasion Patient Disposition: Home, Self-Care Condition: Stable Instructions: Antibiotic Form, Corneal Abrasion (DC) Additional Instructions: We are treating you for a corneal abrasion to your right eye. Please use the eyedrops as prescribed. Please follow-up with ophthalmology at [facility] at this number: [phone] Prescriptions: New ofloxacin [Ocuflox] 0.3 % drops See Rx Instructions .ROUTE .COMPLEX Qty: 5 0RF Rx Instructions: put 1-2 drps into affected eye(s) every 2-4 h x 2 days, then 1-2 drps 4 times/day
== END 2023-05-06 13:10 | disposition home or self-care (01) ==
PROVIDERS: Emergency Provider Emergency Medicine; PCP Internal Medicine
DX: S05.01XA Injury of conjunctiva and corneal abrasion without foreign body, right eye, initial encounter (principal); Z85.44 Personal history of malignant neoplasm of other female genital organs; Z90.710 Acquired absence of both cervix and uterus; X58.XXXA Exposure to other specified factors, initial encounter
CPT/HCPCS: 99283